=== PATIENT | female | born 1990 | race African-American/Black ===

== ENCOUNTER 2023-11-09 18:20 | Emergency (ER) | payer SELFPAY ==
[2023-11-09] VITALS (10 sets, daily range): BP systolic 97–128; BP diastolic 66–85; PULSE 60–70; RESP 18; TEMP 37.1; O2SAT 98–100; BMI 24.2
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
--- NOTE | 2023-11-09 20:09 | CT_ITS ---
[address] [address] Patient Name: JESSICA GARCIA MRN: [id number] date: 1990 Sex: F Assigned Patient Location: ER Current Patient Location: Accession/Order Number: [id number] Exam Date: 11/09/2023 21:00 Report Date: 11/09/2023 21:59 At the request of: MAXWELL COBB Procedure: CT abdomen pelvis w con EXAM: CT abdomen pelvis w con, CT chest w con TECHNIQUE: Axial CT images were obtained of the chest, abdomen and pelvis following intravenous contrast administration. Sagittal and coronal reformatted images were also obtained. Dose reduction techniques were achieved by using automated exposure control and/or adjustment of mA and/or kV according to patient size and/or use of iterative reconstruction technique. HISTORY: trauma COMPARISON: None. FINDINGS: Neck and Axilla: No lower neck or axillary lymphadenopathy. Mediastinum and Monique: No hilar or mediastinal lymphadenopathy. The esophagus is grossly unremarkable without dilatation or gross mass lesion. Heart and Major Vessels: The heart appears unremarkable for size without pericardial effusion. The aorta and central pulmonary arteries are unremarkable for size. Lung [place]: The lungs are clear of acute infiltrate or mass. Pleural Cavities: No significant pleural effusion. No pneumothorax. Chest Wall: No acute abnormality. Liver: The liver is homogeneous with normal contours and normal size. Gallbladder: The gallbladder is unremarkable. There is no intra or extrahepatic biliary dilatation. Pancreas: The pancreas is homogeneous without evidence for mass lesion or inflammation. Spleen: The spleen is unremarkable without evidence for mass lesion. Adrenal glands: The adrenal glands are unremarkable Kidneys and bladder: The kidneys are unremarkable with no evidence for mass lesion, hydronephrosis or inflammation. The ureters demonstrate normal caliber. The urinary bladder is unremarkable. GI Tract: Stomach is unremarkable. Visualized small bowel is unremarkable without evidence for obstruction or active inflammation. The appendix is unremarkable.The visualized portion of the large bowel is unremarkable. Reproductive: Small uterine fibroid of the right side of the fundus. Lymph nodes: No retroperitoneal or abdominal lymphadenopathy. Vascular: The aorta is not dilated. Mesenteric vessels are patent. Peritoneum: Physiologic small amount of free fluid in the pelvis. Abdominal wall: Unremarkable without acute abnormality. CT/CT abdomen pelvis w con IMPRESSION: No acute traumatic injury of the chest, abdomen or pelvis. No acute inflammatory process. Electronically authenticated by: MALENA WEINER Date: 11/09/2023 21:59
--- NOTE | 2023-11-09 20:09 | XR_ITS ---
The [address] [address] Patient Name: JESSICA GARCIA MRN: [id number] date: 1990 Sex: F Assigned Patient Location: ER Current Patient Location: ER Accession/Order Number: [id number] Exam Date: 11/09/2023 21:00 Report Date: 11/09/2023 21:40 At the request of: MAXWELL COBB Procedure: XR knee LT 3V XR knee LT 3V: HISTORY: injury injury COMPARISON: None available. TECHNIQUE: 3 views of the left knee are submitted. FINDINGS: BONES/JOINT SPACES: There is no acute fracture or dislocation. The joint spaces are well-maintained. SOFT TISSUES: The soft tissues are unremarkable. XR/XR knee LT 3V IMPRESSION: No definitive acute fracture of the right knee. Electronically authenticated by: NABIL JAMESON Date: 11/09/2023 21:40
--- NOTE | 2023-11-09 20:09 | XR_ITS ---
The [address] [address] Patient Name: JESSICA GARCIA MRN: [id number] date: 1990 Sex: F Assigned Patient Location: ER Current Patient Location: ER Accession/Order Number: [id number] Exam Date: 11/09/2023 21:00 Report Date: 11/09/2023 21:39 At the request of: MAXWELL COBB Procedure: XR ankle LT min 3V XR ankle LT min 3V: HISTORY: injury injury COMPARISON: None available. TECHNIQUE: 3 left ankle views are submitted. FINDINGS: BONES/JOINT SPACES: There is no acute fracture or dislocation. The joint spaces are well-maintained. SOFT TISSUES: The soft tissues are unremarkable. XR/XR ankle LT min 3V IMPRESSION: There are no definitive acute fractures of the left ankle. Electronically authenticated by: NABIL JAMESON Date: 11/09/2023 21:39
--- NOTE | 2023-11-09 20:09 | CT_ITS ---
[address] [address] Patient Name: JESSICA GARCIA MRN: [id number] date: 1990 Sex: F Assigned Patient Location: ER Current Patient Location: Accession/Order Number: [id number] Exam Date: 11/09/2023 21:00 Report Date: 11/09/2023 21:59 At the request of: MAXWELL COBB Procedure: CT chest w con EXAM: CT abdomen pelvis w con, CT chest w con TECHNIQUE: Axial CT images were obtained of the chest, abdomen and pelvis following intravenous contrast administration. Sagittal and coronal reformatted images were also obtained. Dose reduction techniques were achieved by using automated exposure control and/or adjustment of mA and/or kV according to patient size and/or use of iterative reconstruction technique. HISTORY: trauma COMPARISON: None. FINDINGS: Neck and Axilla: No lower neck or axillary lymphadenopathy. Mediastinum and Monique: No hilar or mediastinal lymphadenopathy. The esophagus is grossly unremarkable without dilatation or gross mass lesion. Heart and Major Vessels: The heart appears unremarkable for size without pericardial effusion. The aorta and central pulmonary arteries are unremarkable for size. Lung [place]: The lungs are clear of acute infiltrate or mass. Pleural Cavities: No significant pleural effusion. No pneumothorax. Chest Wall: No acute abnormality. Liver: The liver is homogeneous with normal contours and normal size. Gallbladder: The gallbladder is unremarkable. There is no intra or extrahepatic biliary dilatation. Pancreas: The pancreas is homogeneous without evidence for mass lesion or inflammation. Spleen: The spleen is unremarkable without evidence for mass lesion. Adrenal glands: The adrenal glands are unremarkable Kidneys and bladder: The kidneys are unremarkable with no evidence for mass lesion, hydronephrosis or inflammation. The ureters demonstrate normal caliber. The urinary bladder is unremarkable. GI Tract: Stomach is unremarkable. Visualized small bowel is unremarkable without evidence for obstruction or active inflammation. The appendix is unremarkable.The visualized portion of the large bowel is unremarkable. Reproductive: Small uterine fibroid of the right side of the fundus. Lymph nodes: No retroperitoneal or abdominal lymphadenopathy. Vascular: The aorta is not dilated. Mesenteric vessels are patent. Peritoneum: Physiologic small amount of free fluid in the pelvis. Abdominal wall: Unremarkable without acute abnormality. CT/CT chest w con IMPRESSION: No acute traumatic injury of the chest, abdomen or pelvis. No acute inflammatory process. Electronically authenticated by: MALENA WEINER Date: 11/09/2023 21:59
--- NOTE | 2023-11-09 20:09 | CT_ITS ---
[address] [address] Patient Name: JESSICA GARCIA MRN: [id number] date: 1990 Sex: F Assigned Patient Location: ER Current Patient Location: Accession/Order Number: [id number] Exam Date: 11/09/2023 21:00 Report Date: 11/09/2023 21:53 At the request of: MAXWELL COBB Procedure: CT cervical spine wo con EXAMINATION: CT head/brain wo con, CT cervical spine wo con, CT lumbar spine wo con, CT facial bones wo con TECHNIQUE: Axial CT images were obtained through the brain. Sagittal and coronal reformatted images were also obtained. Axial CT images were obtained through the cervical spine. Sagittal and coronal reformatted images were also obtained. Dose reduction techniques were achieved by using automated exposure control and/or adjustment of mA and/or kV according to patient size and/or use of iterative reconstruction technique. HISTORY: trauma COMPARISON: None. FINDINGS: BRAIN: Intracranial Bleed: No evidence for acute intracranial bleed. Intracranial Mass: No evidence for mass lesion. No mass effect or midline shift. Extra-axial spaces: The ventricular system is normal caliber. White/Presley Matter: No acute cortical infarct. No significant white matter abnormality. Skull/Scalp: No evidence for skull fracture or lesion. CERVICAL SPINE: Vertebrae: No fracture Alignment: The alignment is anatomic. No acute subluxation. Arthritic changes: No significant arthritic changes Disc spaces: No gross disc herniation given limitation of CT scan. Soft tissues: No soft tissue mass or large hematoma. FACIAL BONES: Fracture: No facial bone fracture. Orbits and sinuses: The orbits appear unremarkable. The visualized paranasal sinuses are clear. LUMBAR SPINE: Bones: No fracture Alignment: The alignment is anatomic. No acute subluxation. Arthritic changes: No significant arthritic changes Disc spaces: No gross disc herniation given limitation of CT scan. Soft tissues: No soft tissue mass or large hematoma. CT/CT cervical spine wo con IMPRESSION: No acute intracranial pathology. No acute fracture or subluxation of the cervical spine. No facial bone fracture. No acute fracture or subluxation of the lumbar spine. Electronically authenticated by: MALENA WEINER Date: 11/09/2023 21:53
--- NOTE | 2023-11-09 20:09 | CT_ITS ---
[address] [address] Patient Name: JESSICA GARCIA MRN: [id number] date: 1990 Sex: F Assigned Patient Location: ER Current Patient Location: Accession/Order Number: [id number] Exam Date: 11/09/2023 21:00 Report Date: 11/09/2023 21:53 At the request of: MAXWELL COBB Procedure: CT lumbar spine wo con EXAMINATION: CT head/brain wo con, CT cervical spine wo con, CT lumbar spine wo con, CT facial bones wo con TECHNIQUE: Axial CT images were obtained through the brain. Sagittal and coronal reformatted images were also obtained. Axial CT images were obtained through the cervical spine. Sagittal and coronal reformatted images were also obtained. Dose reduction techniques were achieved by using automated exposure control and/or adjustment of mA and/or kV according to patient size and/or use of iterative reconstruction technique. HISTORY: trauma COMPARISON: None. FINDINGS: BRAIN: Intracranial Bleed: No evidence for acute intracranial bleed. Intracranial Mass: No evidence for mass lesion. No mass effect or midline shift. Extra-axial spaces: The ventricular system is normal caliber. White/Presley Matter: No acute cortical infarct. No significant white matter abnormality. Skull/Scalp: No evidence for skull fracture or lesion. CERVICAL SPINE: Vertebrae: No fracture Alignment: The alignment is anatomic. No acute subluxation. Arthritic changes: No significant arthritic changes Disc spaces: No gross disc herniation given limitation of CT scan. Soft tissues: No soft tissue mass or large hematoma. FACIAL BONES: Fracture: No facial bone fracture. Orbits and sinuses: The orbits appear unremarkable. The visualized paranasal sinuses are clear. LUMBAR SPINE: Bones: No fracture Alignment: The alignment is anatomic. No acute subluxation. Arthritic changes: No significant arthritic changes Disc spaces: No gross disc herniation given limitation of CT scan. Soft tissues: No soft tissue mass or large hematoma. CT/CT lumbar spine wo con IMPRESSION: No acute intracranial pathology. No acute fracture or subluxation of the cervical spine. No facial bone fracture. No acute fracture or subluxation of the lumbar spine. Electronically authenticated by: MALENA WEINER Date: 11/09/2023 21:53
[2023-11-09 20:51] LABS: Basophils Absolute Auto 0.1 10^3/uL (0.0-0.1); Basophils Percent Auto 0.6 % (0.2-2.0); Eosinophils Absolute Auto 0.1 10^3/uL (0.0-0.7); Hemoglobin 10.8 g/dL (12.0-16.0); Immature Granulocytes Abs Auto 0.02 10^3/uL (0.00-0.03); Immature Granulocytes Pct Auto 0.2 % (0.0-0.5); Lymphocytes Absolute Auto 2.2 10^3/uL (1.2-3.8); Lymphocytes Percent Auto 27.5 % (20.5-60.0); Mean Corpuscular HGB Conc 31.8 g/dL (29.9-35.2); Mean Corpuscular Hemoglobin 29.3 pg (26.7-34.0); Mean Corpuscular Volume 92.1 fL (81.0-99.0); Mean Platelet Volume 10.7 fL (9.5-13.5); Monocytes Absolute Auto 0.4 10^3/uL (0.3-0.8); Neutrophils Absolute Auto 5.3 10^3/uL (1.4-6.5); Neutrophils Percent Auto 65.7 % (43.0-75.0); Platelet Count 269 10^3/uL (150-450); Red Blood Count 3.69 10^6/uL (4.20-5.40); Red Cell Distribution Width 15.1 % (11.0-15.0); White Blood Count 8.1 10^3/uL (4.0-11.0)
[2023-11-09 20:52] LABS: Bilirubin Urine NEGATIVE (NEGATIVE); Blood Urine NEGATIVE (NEGATIVE); Clarity Urine CLEAR (CLEAR); Color Urine LT. YELLOW (YELLOW); Glucose Urine UA NEGATIVE (NEGATIVE); Ketones Urine NEGATIVE (NEGATIVE); Leukocyte Esterase Urine NEGATIVE (NEGATIVE); Nitrite Urine NEGATIVE (NEGATIVE); Protein Urine 30 mg/dL (NEG/TRACE); Specific Gravity Urine 1.025 (1.005-1.025); Urobilinogen Urine 0.2 EU/dL (0.2-1.0)
[2023-11-09 20:53] LABS: HCG Qualitative Urine* NEGATIVE (NEGATIVE)
[2023-11-09 20:54] LABS: Urine Microscopic Indicated NO
[2023-11-09 21:00] LABS: Alanine Aminotransferase 12 U/L (14-59); Albumin Globulin Ratio 0.9; Albumin Level 3.7 g/dL (3.4-5.0); Alkaline Phosphatase 95 U/L (46-116); Anion Gap 11.9; Aspartate Amino Transferase 14 U/L (15-37); BUN Creatinine Ratio 12.6; Bilirubin Total 0.2 mg/dL (0.2-1.0); Calcium 8.8 mg/dL (8.5-10.1); Carbon Dioxide 28.2 mmol/L (21.0-32.0); Chloride 109 mmol/L (98-107); Estimated GFR (African America >60 (>=60); Estimated GFR (Non-African Ame >60 (>=60); Globulin 3.9 g/dL; Glucose 88 mg/dL (74-106); Potassium 4.1 mmol/L (3.5-5.1); Sodium 145 mmol/L (136-145); Total Protein 7.6 g/dL (6.4-8.2); Troponin I High Sensitivity 4.5 pg/mL (4.0-51.3)
[2023-11-09] MEDS: METHYLPREDNISOLONE SOD SUCC PF 125 MG/2 ML VIAL IVP (21:51)
[2023-11-12 20:08] LABS: Neisseria gonorrhoeae, NAA Negative (Negative)
== END 2023-11-09 23:51 | disposition home or self-care (01) ==
PROVIDERS: Emergency Provider Internal Medicine
DX: S19.9XXA Unspecified injury of neck, initial encounter (principal); S09.8XXA Other specified injuries of head, initial encounter; T14.8XXA Other injury of unspecified body region, initial encounter; Y04.2XXA Assault by strike against or bumped into by another person, initial encounter; F17.210 Nicotine dependence, cigarettes, uncomplicated
CPT/HCPCS: 36415; 70450; 70486; 71260; 72125; 72131; 73562; 73610; 74177; 80053; 81003; 84484; 84703; 85025; 87491; 87591; 96374; 99285; J2930; Q9967